=== PATIENT | male | born 1955 | race Caucasian/White ===

== ENCOUNTER 2016-11-14 05:25 | Observation (INO) | payer OTHER ==
[2016-11-04 15:21] LABS: BASOPHILS 0.3 %; BASOPHILS ABSOLUTE 0.03 10/3/uL (0.0-0.16); EOSINOPHILS ABSOLUTE 0.11 10/3/uL (0.0-0.53); HEMOGLOBIN 15.1 g/dL (13.6-17.8); IMMATURE GRANULOCYTES 0.5 %; IMMATURE GRANULOCYTES ABSOLUTE 0.06 10/3/uL (0.0-0.11); LYMPHOCYTES 9.8 %; MEAN CORPUS HGB CONC 34.8 g/dL (32.0-36.0); MEAN CORPUSCULAR HEMOGLOB 32.9 pg (26.0-34.0); MEAN CORPUSCULAR VOLUME 94.6 fL (80-100); MEAN PLATELET VOLUME 10.5 fL (9.2-13.0); MONOCYTES 7.6 %; MONOCYTES ABSOLUTE 0.86 10/3/uL (0.21-1.20); NEUTROPHILS 80.8 %; RBC DISTRIBUTION WIDTH 12.3 % (12.0-16.0); RED CELL COUNT 4.59 10/6/uL (4.7-6.1); WHITE BLOOD CELLS 11.3 10/3/uL (4.5-10.5)
[2016-11-04 15:25] LABS: HEMATOCRIT 43.4 % (40.0-51.0); MANUAL DIFF NO %; PLATELET COUNT 204 10/3/uL (150-400)
[2016-11-04 15:34] LABS: PARTIAL THROMBO TIME 31.4 SEC (22.5-37.2)
[2016-11-04 15:49] LABS: CALCIUM, SERUM 8.5 MG/DL (8.5-10.4); CHLORIDE, SERUM 104 MMOL/L (96-112); CREATININE 1.31 MG/DL (0.70-1.30); GFR AFRICAN AMERICAN 68 ML/MIN (>=60); GFR NON AFRICAN AMERICAN 59 ML/MIN (>=60); GLUCOSE, SERUM 108 MG/DL (60-99); POTASSIUM, SERUM 3.8 MMOL/L (3.5-5.3); SODIUM, SERUM 141 MMOL/L (135-148)
[2016-11-04 15:50] LABS: BUN (BLOOD UREA NITROGEN) 14 MG/DL (6-23); CO2 (CARBON DIOXIDE) 28 MMOL/L (24-34)
--- NOTE | ~2016-11-14 | OP ---
Record Of Operation [facility] [address] [place]. 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 PROCEDURE PERFORMED: 1. Wide local excision of left sentinel lymph node biopsy scar. 2. Complex layered closure 5 x 3 cm defect. 3. Left posterolateral neck dissection. 4. Transposition of left spinal accessory nerve. SURGEON: Shahriar Krishna M.D. MINE DEPUTY: Parul Cummings M.D. ANESTHESIA: General. COMPLICATIONS: None. CONDITION: Stable to recovery. INDICATIONS: A 60-year-old male with a midline coronal scalp, malignant melanoma, metastatic to the bilateral neck based on sentinel lymph node biopsies. The risks, benefits, and alternatives to excision of the staged neck dissections were explained to him. The plan was to start with the left neck and proceed to the right neck two weeks later. He comes in today for the left posterior lateral neck dissection. PROCEDURE IN DETAIL: The patient was identified in preoperative holding, taken back to the operating room, and placed supine on the operating room table. General anesthesia was established. He was prepped and draped in a standard fashion for the operation. A time-out was called. The patient and procedure were confirmed. Initially, a marking pen was used to outline the left occipital biopsy site and this was an elliptical 5 x 3 cm defect that transitioned into a hockey-stick type apron incision of the left neck following the anterior border of the trapezius muscle and curving parallel two fingerbreadths above the clavicle. The incision marking was placed in a preexisting skin crease and infiltrated subcutaneously with 5 mL of 1% lidocaine with 1:100,000 epinephrine. He was then prepped and draped in a standard fashion for the operation. Using 2.5x loupe magnification and headlight illumination, the operation commenced. A 15 blade was used to make the incision around the occipital scar down to the subcutaneous fat. The incision was then taken down into along the anterior border of the trapezius muscle curving parallel to the clavicle through the platysma muscle. Subplatysmal flaps and subcutaneous flaps were elevated anteriorly and posteriorly. Initially, the anterior border of the trapezius muscle was identified. A combination of Bovie cautery, Harmonic scalpel, and bipolar cautery were used throughout the case. The anterior border of the trapezius muscle was followed down to the clavicle Record Of Operation [facility] [address] [facility] [place]. [address] NAME: VIDYA RO : 55 STATUS : ADM IN PAT#: [id number] AGE: 60 ADM/REG DATE : 11/14/16 MR#: [id number] REPORT SERV DATE: 11/14/16 DICTATED BY: SHAHRIAR KRISHNA DATE: 11/14/16 REPORT STATUS : Draft TRANSCRIBED BY: MODL DATE: 11/14/16 inferiorly and up to the occiput superiorly. I then identified the posterior border of the sternomastoid muscle and released the fascia from the posterior border all the way from the mastoid tip to the clavicle. Erb's plexus was then used to direct this to the spinal accessory nerve identification. I was able to identify this just superior and deep to the erb's plexus. This was confirmed with a nerve stimulating probe showing good trapezius movement with stimulation at 2 milliamps. I then skeletonized the spinal accessory nerve and was able to identify it with a vessel loop. This allowed for me to do a 360-degree dissection with Metzenbaum scissors releasing the nerve from the deep fascia of the left posterior triangle, so that it could be transposed during the dissection. I then released the fascia off the sternomastoid up to the postauricular space and up towards the occiput anteriorly and then along the trapezius muscle taking a cuff of the trapezius muscle posterolaterally up to the nuchal line of the occiput. I then went down to the occipital fascia, periosteum and released the soft tissue from the occipital sawyer basin and the postauricular aswyer basin with Bovie cautery. I did not encounter the previous surgical site and went deep to the granulation taking fascia, splenius capitis. Once the postauricular and occipital basins were dissected, I released the fascia off the splenius capitis and levator fascia rotating it posteriorly to anteriorly from the clavicle to the mastoid. I did dissect the level 5A superior aspect of the posterior triangle and sent that along with the occipital and postauricular nodes as separate specimens. This left the level 5B the inferior aspect of the spinal accessory nerve and then levels 2, 3, and 4 to dissect. During this, I transposed the spinal accessory nerve inferior medially to dissect the superior aspect of level 5 and then after that I transposed the nerve superiorly and laterally to dissect the inferior aspect. I used the fascia of the deep neck and followed it into the supraclavicular fossa ligating the transverse cervical artery and vein with 3-0 silk ties and hemoclips. I transected the omohyoid muscle and rotated it forward mobilizing it as well. This allowed full clearance of the low level 5 inferior to the spinal accessory nerve. I then released the anterior border of the sternomastoid muscle. I identified the spinal accessory nerve in the superior aspect of the neck passing over the internal jugular vein and going deep to the digastric muscle. I did a 360-degree dissection their and transposed the nerve anterior medially to remove all the tissue from the deep neck submuscular recess of level 2B, which was actually transitioning into level 5A and there was a dark node in this dissection noted. I delivered this underneath the spinal accessory nerve and brought this into continuity with levels 3 and 4 and the low level 5. I then dissected these the lymphatic envelope through the cervical rootlets over the carotid artery and jugular vein and then dissected off the facial vein preserving all the structures. 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 Minimal bleeding was noted during the case. After dissecting these lymphatic envelope off the carotid and jugular space, I split the specimen up into levels 2, 3, 4, and the level 5B, inferior spinal accessory nerve level 5. Level 1 was not dissected. At the end of the case, the wound was irrigated. Bipolar cautery was used for hemostasis. A 10-Gambian flat fully perforated drain was placed and secured with a 3-0 Vicryl suture and then the wound was closed in layers closing the 5 x 3 cm occipital defect with 3-0 Vicryl and consuelo. It was undermined and a Burow's triangle was taken superiorly to help with the closure. It was undermined peripherally as well. I then closed the platysma and the subcutaneous tissues of the posterior triangle incision with 3-0 Vicryl Record Of Operation [facility] [address] [place]. [address] NAME: VIDYA RO : 55 STATUS : ADM IN [facility]#: [id number] AGE: 60 ADM/REG DATE : 11/14/16 MR#: [id number] REPORT SERV DATE: 11/14/16 DICTATED BY: SHAHRIAR KRISHNA DATE: 11/14/16 REPORT STATUS : Draft TRANSCRIBED BY: MODL DATE: 11/14/16 interrupted suture followed by consuelo. Neosporin ointment was placed. The patient was handed over to Anesthesia for extubation and return to recovery. There were no complications. PH/DIONL Shahriar Krishna M.D. / [id number] CC: Shahriar Krishna M.D.
[~2016-11-14 05:25] MED LIST: CENTRUM PO; DIOVAN320 MG PO; GLUCPH PO; LOP50 PO; NORV5 PO; VIT B; ZOCOR20 PO
[2016-11-15] MEDS ORDERED: NORCO1 TA1 PO (09:34)
[2016-11-15] MEDS ORDERED: ZOFRAN4 SL (09:35)
== END 2016-11-15 12:00 | disposition home or self-care (01) ==
LOC: SDC 05:25 → IMCU 12:54
PROVIDERS: Specialist
PROC: 0JQ40ZZ Repair Right Neck Subcutaneous Tissue and Fascia, Open Approach (ICD-10-PCS; 2016-11-14)
PROC: 07B20ZX Excision of Left Neck Lymphatic, Open Approach, Diagnostic (ICD-10-PCS; principal; 2016-11-14 07:15)
DX: C77.0 Secondary and unspecified malignant neoplasm of lymph nodes of head, face and neck (principal); C43.4 Malignant melanoma of scalp and neck; I10 Essential (primary) hypertension; E11.9 Type 2 diabetes mellitus without complications; E78.5 Hyperlipidemia, unspecified; E78.00 Pure hypercholesterolemia, unspecified; M10.9 Gout, unspecified; Z79.899 Other long term (current) drug therapy; Z82.49 Family history of ischemic heart disease and other diseases of the circulatory system; Z82.3 Family history of stroke; Z98.41 Cataract extraction status, right eye; Z98.42 Cataract extraction status, left eye; Z98.890 Other specified postprocedural states
CPT/HCPCS: 36415; 71020; 80048; 82962; 85025; 85730; 86850; 86900; 86901; 88305; 88307; 88341; 88342; 93005; A9270-GY; G0378; J0690; J2250; J2270; J2405; J2710; J3010

== ENCOUNTER 2016-12-05 04:54 | Observation (INO) | payer OTHER ==
--- NOTE | ~2016-12-05 | OP ---
Record Of Operation [facility] [address] [place]. [address] NAME: VIDYA RO : 55 STATUS : REG [facility] [place] PAT#: [id number] AGE: 61 ADM/REG DATE : 12/05/16 MR#: [id number] REPORT SERV DATE: 12/05/16 DICTATED BY: SHAHRIAR KRISHNA DATE: 12/05/16 REPORT STATUS : Draft TRANSCRIBED BY: MODL DATE: 12/05/16 DATE OF PROCEDURE: 12/05/2016 PREOPERATIVE DIAGNOSIS: Malignant melanoma, coronal scalp stage III. POSTOPERATIVE DIAGNOSIS: Malignant melanoma, coronal scalp stage III. PROCEDURE PERFORMED: 1. Right posterolateral neck dissection. 2. Wide excision of 3 x 5 cm melanoma biopsy site scar. 3. Layered closure of 3 x 5 cm defect. 4. Cranial nerve transposition right spinal accessory nerve, cranial nerve #11. SURGEON: Shahriar Krishna M.D. QUARRY MANAGER: Parul Cummings M.D. ANESTHESIA: General. COMPLICATIONS: None. CONDITION: Stable to recovery. INDICATIONS: A 61-year-old male with stage III malignant melanoma of the coronal scalp. PROCEDURE IN DETAIL: The patient was identified in preoperative holding, taken back to the operating room, and placed supine on the operating room table. General anesthesia was established. Initially, his left neck was inspected and a gauze was placed on the wound that was being packed from his previous left neck dissection. This was covered with a 2 x 2 gauze and silk tape. We then turned our attention to the right side and outlined an apron incision from the supraclavicular fossa midline paralleling the clavicle within the trapezius muscle to the right occiput. This required shaving a portion of the occipital hair. It was infiltrated subcutaneously with 1% lidocaine with 1:100,000 epinephrine. The sentinel lymph node biopsy site was outlined in an elliptical fashion in a 3 x 5 cm dimension. He was prepped and draped in a standard fashion for the operation. A time-out was called and the patient and procedure were confirmed. Initially, the Bovie cautery was set on 15 cut, 25 coagulation, and the cut mode was used to make the skin incision. Subplatysmal flaps were elevated superiorly to the angle of the mandible and the mastoid and then the postauricular space in occipital fascia and then laterally beyond the trapezius muscle and inferiorly to the clavicle. Initially, the fascia was taken off the anterior border of the sternomastoid muscle. Ligating the external jugular vein superiorly and inferiorly. The fascia was dissected from an anterior to posterior direction. Freeing the anterior and posterior edges of the sternomastoid muscle. The spinal accessory nerve was identified, superficial on the right, posterior triangle, and was initially seen without any dissection Record Of Operation [address] [address] NAME: VIDYA RO : 55 STATUS : REG [facility] [place] PAT#: [id number] AGE: 61 ADM/REG DATE : 12/05/16 MR#: [id number] REPORT SERV DATE: 12/05/16 DICTATED BY: SHAHRIAR KRISHNA DATE: 12/05/16 REPORT STATUS : Draft TRANSCRIBED BY: BUBBA DATE: 12/05/16 coursing through the posterior triangle and this was confirmed with the nerve stimulating probe. It was isolated and surrounded with vessel loops x2 to help with dissection. It was 360 degree dissected, transposing it anteriorly and posteriorly, so that we could deliver the lymph nodes around the nerve without injury. Initially, the dissection started superiorly at the occipital fascia. The lymph nodes and soft tissue from the occiput were dissected. Taking a small cuff of trapezius muscle providing access to the occipital sawyer basin. We then went postauricular and dissected the fascia and soft tissue off the mastoid tip and postauricular space from a superior to inferior direction. This revealed the trapezius muscle along with the levator scapulae, fascia, and this was taken from a superior to inferior direction. The initial specimen was sent as occipital sawyer basin and postauricular sawyer basin. I then dissected the upper aspect of level 5 superior to the spinal accessory nerve. I delivered this all over the splenius capitis and levator scapulae. Fascia underneath the spinal accessory nerve and brought this into continuity with the inferior aspect of the posterior triangle coming across cervical rootlets as well as supraclavicular veins to mobilize the soft tissue of the inferior aspect of level 5 over the deep neck musculature. The scalene muscle fascia was identified. The brachial plexus was identified and avoided. The soft tissue was swept over the fascia of the deep neck. The transverse cervical artery was ligated with medium hemoclip and Harmonic scalpel. This allowed mobilization of the lymphatic packet from a lateral to medial direction. Multiple cervical rootlets were clipped with medium hemoclips. The soft tissue of the lymph node of level 5 and the sternomastoid fascia was delivered underneath the sternomastoid muscle as it was freed up from the surrounding soft tissue using Harmonic scalpel, a hemostat, and a Shirlene drain. The lymphatics of level 5 were delivered over the deep neck musculature, carotid artery, jugular vein. Care was taken to avoid the phrenic nerve which was identified as well as the vagus nerve. Once delivered over the jugular vein anteriorly with the omohyoid muscle, dissection proceeded superiorly to the upper aspect of spinal accessory nerve which was again dissected in a 360-degree fashion and mobilized, so that we can get to see the upper level 2B submuscular recess. This was delivered underneath the spinal accessory nerve and brought into continuity with levels 2A, 3, 4, and 5. The specimen was into its component parts of levels 2, 3, 4, and 5, and passed off the table. The hypoglossal nerve was identified as well during the dissection. Both hypoglossal nerve and spinal accessory nerves were preserved throughout the case and this was confirmed with nerve stimulating probe. Wound was irrigated with saline. Bipolar cautery was used for hemostasis. A 10-Dominican flat fully perforated drain was placed and secured with 3-0 Vicryl suture. The wound was then inspected and hemostasis achieved with bipolar cautery. The wound was closed in layers using 3-0 Vicryl for the platysma and consuelo for the skin followed by Dermabond and in 2 areas Neosporin as well. The patient was awakened and taken recovery in stable condition. There were no obvious lymph nodes with metastatic melanoma noted during the dissection. No evidence of extracapsular extension. There were no complications. PH/MODL Record Of [facility] [address] [place]. [address] NAME: VIDYA RO : 55 STATUS : REG [facility]#: [id number] AGE: 61 ADM/REG DATE : 12/05/16 MR#: [id number] REPORT SERV DATE: 12/05/16 DICTATED BY: SHAHRIAR KRISHNA DATE: 12/05/16 REPORT STATUS : Draft TRANSCRIBED BY: BUBBA DATE: 12/05/16 Shahriar Krishna M.D. / [id number] CC: Shahriar Krishna M.D.
[~2016-12-05 04:54] MED LIST changes: +NORCO1 TA1 PO; +ZOFRAN4 SL
[2016-12-05 06:17] LABS: BASOPHILS 0.5 %; BASOPHILS ABSOLUTE 0.04 10/3/uL (0.0-0.16); EOSINOPHILS 2.9 %; EOSINOPHILS ABSOLUTE 0.22 10/3/uL (0.0-0.53); HEMATOCRIT 42.6 % (40.0-51.0); HEMOGLOBIN 14.8 g/dL (13.6-17.8); IMMATURE GRANULOCYTES 0.8 %; IMMATURE GRANULOCYTES ABSOLUTE 0.06 10/3/uL (0.0-0.11); LYMPHOCYTES 20.6 %; LYMPHOCYTES ABSOLUTE 1.57 10/3/uL (0.67-4.30); MEAN CORPUS HGB CONC 34.7 g/dL (32.0-36.0); MEAN CORPUSCULAR HEMOGLOB 33.1 pg (26.0-34.0); MEAN CORPUSCULAR VOLUME 95.3 fL (80-100); MEAN PLATELET VOLUME 10.8 fL (9.2-13.0); MONOCYTES 7.8 %; MONOCYTES ABSOLUTE 0.59 10/3/uL (0.21-1.20); NEUTROPHILS 67.4 %; NEUTROPHILS ABSOLUTE 5.13 10/3/uL (2.02-8.40); PLATELET COUNT 206 10/3/uL (150-400); RBC DISTRIBUTION WIDTH 12.4 % (12.0-16.0); RED CELL COUNT 4.47 10/6/uL (4.7-6.1); WHITE BLOOD CELLS 7.6 10/3/uL (4.5-10.5)
[2016-12-05 06:18] LABS: MANUAL DIFF NO %
[2016-12-05 06:29] LABS: BUN (BLOOD UREA NITROGEN) 12 MG/DL (6-23); CALCIUM, SERUM 8.8 MG/DL (8.5-10.4); CHLORIDE, SERUM 108 MMOL/L (96-112); CO2 (CARBON DIOXIDE) 27 MMOL/L (24-34); CREATININE 1.11 MG/DL (0.70-1.30); GFR AFRICAN AMERICAN 83 ML/MIN (>=60); GFR NON AFRICAN AMERICAN 71 ML/MIN (>=60); GLUCOSE, SERUM 111 MG/DL (60-99); POTASSIUM, SERUM 3.4 MMOL/L (3.5-5.3); SODIUM, SERUM 145 MMOL/L (135-148)
[2016-12-06 06:30] LABS: BASOPHILS 0.1 %; BASOPHILS ABSOLUTE 0.01 10/3/uL (0.0-0.16); EOSINOPHILS 0 %; HEMATOCRIT 36.1 % (40.0-51.0); HEMOGLOBIN 12.5 g/dL (13.6-17.8); IMMATURE GRANULOCYTES 0.4 %; IMMATURE GRANULOCYTES ABSOLUTE 0.04 10/3/uL (0.0-0.11); LYMPHOCYTES 8.4 %; LYMPHOCYTES ABSOLUTE 0.84 10/3/uL (0.67-4.30); MEAN CORPUS HGB CONC 34.6 g/dL (32.0-36.0); MEAN CORPUSCULAR HEMOGLOB 32.6 pg (26.0-34.0); MEAN CORPUSCULAR VOLUME 94.3 fL (80-100); MONOCYTES 5.9 %; MONOCYTES ABSOLUTE 0.59 10/3/uL (0.21-1.20); NEUTROPHILS 85.2 %; NEUTROPHILS ABSOLUTE 8.51 10/3/uL (2.02-8.40); PLATELET COUNT 176 10/3/uL (150-400); RBC DISTRIBUTION WIDTH 12.1 % (12.0-16.0); RED CELL COUNT 3.83 10/6/uL (4.7-6.1)
[2016-12-06 06:31] LABS: MANUAL DIFF NO %
[2016-12-06 06:33] LABS: BUN (BLOOD UREA NITROGEN) 10 MG/DL (6-23); CALCIUM, SERUM 8.2 MG/DL (8.5-10.4); CHLORIDE, SERUM 108 MMOL/L (96-112); CO2 (CARBON DIOXIDE) 23 MMOL/L (24-34); CREATININE 0.88 MG/DL (0.70-1.30); GFR AFRICAN AMERICAN 107 ML/MIN (>=60); GFR NON AFRICAN AMERICAN 93 ML/MIN (>=60); SODIUM, SERUM 141 MMOL/L (135-148)
[2016-12-06 06:35] LABS: GLUCOSE, SERUM 151 MG/DL (60-99); POTASSIUM, SERUM 4.1 MMOL/L (3.5-5.3)
[2016-12-06] MEDS ORDERED: XODOL 10-300 T1 EACH PO (08:40)
== END 2016-12-06 09:24 | disposition home or self-care (01) ==
LOC: SDC 04:54 → 4SO 17:40
PROVIDERS: Specialist
PROC: 0JB00ZZ Excision of Scalp Subcutaneous Tissue and Fascia, Open Approach (ICD-10-PCS; principal; 2016-12-05 06:45)
DX: C44.41 Basal cell carcinoma of skin of scalp and neck (principal); E11.9 Type 2 diabetes mellitus without complications; I10 Essential (primary) hypertension; C77.0 Secondary and unspecified malignant neoplasm of lymph nodes of head, face and neck
CPT/HCPCS: 36415; 71020; 80048; 82962; 85025; 85730; 86850; 86900; 86901; 88307; 88341; 88342; 96374; 96375; 96376; A9270-GY; G0378; J0690; J2250; J2370; J2405; J2710; J3010